=== PATIENT | female | born 1970 | race Caucasian/White ===

== ENCOUNTER → 2020-04-17 | Outpatient (CLI) | payer OTHER ==
--- NOTE | 2020-04-17 14:01 | MM ---
Reason for exam: screening (asymptomatic). Baseline mammogram. Physical Findings: Nurse did not find any significant physical abnormalities on exam. MG Screening Mammo w CAD Bilateral CC and MLO view(s) were taken. The breast tissue is extremely dense which could obscure a lesion on mammography. There is chronic nodularity in the left breast. No significant new findings when compared with previous films. These results were verbally communicated with the patient and result sheet given to the patient on 04/17/20. ASSESSMENT: Benign, BI-RAD 2 RECOMMENDATION: Routine screening mammogram of both breasts in 1 year.
== END | disposition home or self-care (01) ==
LOC: RADMAMWWP 12:49
PROVIDERS: ATTEND Internal Medicine
DX: Z12.31 Encounter for screening mammogram for malignant neoplasm of breast (principal)
CPT/HCPCS: 77067

== ENCOUNTER → 2020-05-16 | Outpatient (CLI) | payer OTHER ==
--- NOTE | 2020-05-16 16:41 | US ---
EXAMINATION TYPE: US liver DATE OF EXAM: 05/16/2020 COMPARISON: NONE CLINICAL HISTORY: 49-year-old female R94.5 Abnormal Liver Function Test. TECHNIQUE: Multiple sonographic images of the right upper quadrant are obtained. FINDINGS: EXAM MEASUREMENTS: Liver Length: 21.3 cm Gallbladder Wall: 0.2 cm CBD: 0.2 cm Right Kidney: 11.6 x 4.2 x 4.7 cm Pancreas: Only portions of the pancreatic neck and body are visualized. The head and tail are obscur ed by shadowing from bowel gas. Liver: Enlarged and slightly hyperechoic. No focal lesion is seen. Gallbladder: wnl Evidence for sonographic Chavez's sign: no CBD: visualized portions wnl, limited by overlying bowel gas Right Kidney: No hydronephrosis. IMPRESSION: 1. Hepatomegaly (21.3 cm). There may be mild fatty infiltration. 2. No gallstones or biliary ductal dilatation.
== END ==
LOC: RADUSWWP 15:19
PROVIDERS: ATTEND Internal Medicine
DX: R16.0 Hepatomegaly, not elsewhere classified (principal)
CPT/HCPCS: 76705

== ENCOUNTER → 2022-02-14 | Outpatient (CLI) | payer OTHER ==
--- NOTE | 2022-02-17 08:49 | MM ---
Reason for Exam: Screening (asymptomatic). Last mammogram was performed 1 year(s) and 10 month(s) ago. Patient History: Menarche at age 12. First Full-Term at age 18. Hysterectomy at age 43. Risk Values: Mindi 5 year model risk: 0.7%. NCI Lifetime model risk: 6.4%. Prior Study Comparison: 04/17/2020 Bilateral Screening Mammogram, [facility]. Tissue Density: The breast tissue is heterogeneously dense. This may lower the sensitivity of mammography. Findings: Analyzed By CAD. There is no suspicious group of microcalcifications or new suspicious mass in either breast. Overall Assessment: Negative, BI-RAD 1 Management: Screening Mammogram of both breasts in 1 year. A clinical breast exam by your physician is recommended on an annual basis and results should be correlated with mammographic findings. [facility] will attempt to contact patient to return for supplemental views and ultrasound if indicated. Electronically signed and approved by: Barak Blunt DO
== END | disposition home or self-care (01) ==
LOC: RADMAMWWP 16:29
PROVIDERS: ATTEND Internal Medicine
DX: Z12.31 Encounter for screening mammogram for malignant neoplasm of breast (principal)
CPT/HCPCS: 77067

== ENCOUNTER → 2023-05-22 | Outpatient (CLI) | payer OTHER ==
--- NOTE | 2023-05-26 14:15 | MM ---
Reason for Exam: Screening (asymptomatic). Last mammogram was performed 1 year(s) and 3 month(s) ago. Patient History: Menarche at age 12. First Full-Term at age 18. Hysterectomy at age 43. Risk Values: Mindi 5 year model risk: 0.8%. NCI Lifetime model risk: 6.3%. Prior Study Comparison: 04/17/2020 Bilateral Screening Mammogram, [facility]. 02/14/2022 Bilateral MG screening mammo w CAD, [facility]. Tissue Density: The breasts are extremely dense, which lowers the sensitivity of mammography. Findings: Analyzed By CAD. There is no suspicious group of microcalcifications or new suspicious mass. Benign-appearing calcifications right breast. Overall Assessment: Benign, BI-RAD 2 Management: Screening Mammogram of both breasts in [address] [facility] will attempt to contact patient to return for supplemental views and ultrasound if indicated. Patient should continue monthly self-breast exams. A clinical breast exam by your physician is recommended on an annual basis. This exam should not preclude additional follow-up of suspicious palpable abnormalities. Note on Mindi scores and lifetime risk: 1. A Mindi score greater than 3% is considered moderate risk. If this is the case, consider specialist referral to assess eligibility for a risk reducing agent. 2. If overall lifetime risk for the development of breast cancer is 20% or higher, the patient may qualify for future screening with alternating mammogram and breast MRI. Electronically signed and approved by: Barak Blunt DO
== END | disposition home or self-care (01) ==
LOC: RADMAMWWP 14:40
PROVIDERS: ATTEND Internal Medicine
DX: Z12.31 Encounter for screening mammogram for malignant neoplasm of breast (principal)
CPT/HCPCS: 77067

== ENCOUNTER → 2023-11-13 | Outpatient (CLI) | payer MEDICARE, OTHER ==
--- NOTE | 2023-11-13 08:17 | MM ---
Reason for Exam: Clinical finding. Last screening mammogram was performed 5 month(s) ago. Indicated Problems: Lump or thickening of the right side for 6 Month(s). Patient History: Menarche at age 12. First Full-Term at age 18. Hysterectomy at age 43. Risk Values: Mindi 5 year model risk: 0.8%. NCI Lifetime model risk: 6.2%. Prior Study Comparison: 04/17/2020 Bilateral Screening Mammogram, [facility]. 02/14/2022 Bilateral MG screening mammo w CAD, [facility]. 05/22/2023 Bilateral MG screening mammo w CAD, [facility]. Tissue Density: Right: The breasts are heterogeneously dense, which may obscure small masses. Findings: Analyzed By CAD. The palpable marker placed along the 1:00 position right breast. Underlying global asymmetry which appears to have been present on prior exams. Further ultrasound evaluation is recommended. Overall Assessment: Incomplete: need additional imaging evaluation, BI-RAD 0 Management: Diagnostic Breast Ultrasound of the right breast. Electronically signed and approved by: Curt Zepeda M.D. Radiologist
--- NOTE | 2023-11-13 14:13 | USB ---
Reason for Exam: Clinical finding. Patient History: Menarche at age 12. First Full-Term at age 18. Hysterectomy at age 43. Risk Values: Mindi 5 year model risk: 0.8%. NCI Lifetime model risk: 6.2%. Technique: Method: Targeted. Doppler: Color. Patient Position: Supine. Prior Study Comparison: 04/17/2020 Bilateral Screening Mammogram, [facility]. 02/14/2022 Bilateral MG screening mammo w CAD, [facility]. 05/22/2023 Bilateral MG screening mammo w CAD, [facility]. Findings: The upper section of the breast of the right breast, the area of palpable concern of the right breast, the axilla of the right breast and the retroareolar of the right breast were scanned. Targeted ultrasound upper inner quadrant right breast 11:00 to 3:00 including scanning of the subareolar region and axilla. Dense shadowing tissue is present throughout including the palpable 1:00 area. More focal shadowing area at the 11:00 estimated to measure 9 x 8 x 5 mm which has a suspicious appearance for which tissue sampling is recommended. No axillary lymphadenopathy. Overall Assessment: Suspicious, BI-RAD 4 Management: Ultrasound-Guided Core Biopsy of the right breast. Possible dense shadowing tissue at the 11:00 position but with suspicious appearance. Biopsy recommended. Also, given patient's report of enlarging palpable area at the 1:00 position, recommend further clinical assessment by a breast surgeon. Results were given to the patient verbally at the time of exam. Electronically signed and approved by: Curt Zepeda M.D. Radiologist
== END | disposition home or self-care (01) ==
LOC: RADMAMWWP 07:26
PROVIDERS: ATTEND Internal Medicine
DX: N63.10 Unspecified lump in the right breast, unspecified quadrant (principal); R92.333 Mammographic heterogeneous density, bilateral breasts
CPT/HCPCS: 77065; 76642; G0279; 77061

== ENCOUNTER → 2023-12-03 | Outpatient (CLI) | payer MEDICARE, OTHER ==
[2023-12-03 12:35] VITALS: BP 95/78; PULSE 70; RESP 15; TEMP 98.3
--- NOTE | 2023-12-03 13:00 | P.GSCN ---
History of Present Illness Consult date: 12/03/23 Reason for Consult: abnormal right breast mammogram and ultrasound Requesting physician: Nader Burch History of present illness: Isabel is a 53 year old female seen in consultation for Dr. Burch regarding an abnormal right breast mammogram and ultrasound. She had a bilateral mammogram on 05-22-23 which was BIRAD 2. She than had a palpable change in her right breast leading to a mammogram and ultrasound on 11-13-23. The ultrasund showed dense tissue at 1:00 as well as more focal shadowing at 11:00. Biopsy was recommended. She has been able to feel the area of fullness in her right breast for about 6 months, this has increased in size. It is uncomfortable at times. She is not complaining of any nipple discharge or skin changes. She does not note nay other lumps or masses in her breast. She has never had any surgery on her breast. She is not complaining of any trauma or infection in the breast. 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 cyst removed form ovaries tonsil Medical History: status post CVA/ left sided weakness pain in back and hips HTN anxiety muscle spasm Social History: nicotine: 5 cigarettes/day alcohol: occasional/ monthly used to drink daily stopped that in 2020 drugs: eats ediables Review of Systems - Constitutional Reports sweats - EENT EENT Comment(s): 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 Eyes: denies blurred vision Ears: deny: decreased hearing, tinnitus Ears, nose, mouth and throat: Reports dysphagia - Breasts bilateral: as per HPI - Cardiovascular Denies chest pain, Denies shortness of breath - Respiratory Denies cough, Denies 7 - Gastrointestinal Reports as per HPI - Genitourinary Genitourinary: Denies dysuria, Denies hematuria Menstruation: Reports post hysterectomy - Musculoskeletal Reports as per HPI - Integumentary Denies rash, Denies unusual bruising - Neurological Reports headaches, Denies syncope - Psychiatric Reports anxiety - Endocrine Reports as per HPI, Reports fatigue, Reports weight change - Hematologic/Lymphatic Reports as per HPI - Allergic/Immunologic Reports as per HPI, Reports seasonal allergies Past Medical History Past Medical History: Hyperlipidemia, Hypertension Additional Past Medical History / Comment(s): . HYPOGLYCEMIA. NO HX OF TX FOR ELEV CHOLESTEROL, no medications. Chronic back pain. History of CVA Jan 2021 Left side R/t brain aneurysm surgery History of Any Multi-Drug Resistant Organisms: None Reported Past Surgical History: Hysterectomy, Tonsillectomy Additional Past Surgical History / Comment(s): LAPAROSCOPY, EXC OVARIAN CYSTS. Brain aneurysm 2020 Past Anesthesia/Blood Transfusion Reactions: No Reported Reaction Past Psychological History: ADD/ADHD, Anxiety, Depression Additional Psychological History / Comment(s): OFF RX FOR FEW MONTHS, IMPROVED Smoking Status: Current every day smoker Past Alcohol Use History: Occasional Additional Past Alcohol Use History / Comment(s): 5 cigarettes daily Past Drug Use History: Marijuana Additional Drug Use History / Comment(s): edibles. - Past Family History Father Family Medical History: Cancer Mother Family Medical History: Deep Vein Thrombosis (DVT) Medications and Allergies Home Medications Medication Instructions Recorded Confirmed Type Cyclobenzaprine [Flexeril] 10 mg PO DAILY 11/17/23 12/03/23 History Dextroamphetamine/Amphetamine 20 mg PO DAILY 11/17/23 12/03/23 History [Adderall] HYDROcodone/APAP 10-325MG [[employer] 1 tab PO QID 11/17/23 12/03/23 History 10-325] Meloxicam [Mobic] 15 mg PO DAILY 11/17/23 12/03/23 History lisinopriL [Zestril] 1 each PO DAILY 11/17/23 12/03/23 History traZODone HCL [Desyrel] 100 mg PO HS 11/17/23 12/03/23 History Allergies Allergy/AdvReac Type Severity Reaction Status Date / Time Penicillins Allergy Intermediate Rash/Hives Verified 12/03/23 12:32 Surgical - Exam Vital Signs Temp Pulse Resp BP Pulse Ox 98.3 F 70 15 95/78 99 12/03/23 12:32 12/03/23 12:32 12/03/23 12:32 12/03/23 12:32 12/03/23 12:32 - General moderate distress - Eyes normal ocular movement - Neck trachea midline - Respiratory normal respiratory effort, clear to auscultation - Cardiovascular Rhythm: regular Heart Sounds: normal: S1, S2 - Integumentary normal turgor - Psychiatric oriented to time, oriented to person, oriented to place, speech is normal, memory intact Breast Exam: BRA: 36C inspection: Bilateral grade 2 ptosis Palpation: Right breast: Multi positional exam reveals some dense breast tissue which is greatest in the upper outer quadrant as well as some density in the approximately 1 o'clock position; palpable in the upper inner aspect of the breast examination Right axilla: No adenopathy of concern Left breast: Multi positional exam fibrocystic changes no dominant masses or nodules of concern Left axilla: No adenopathy of concern Results Ultra Sound abnormality right breast personally reviewed and interpreted Assessment and Plan Assessment: Impression: Fullness right breast upper outer quadrant and approximately 1 o'clock position/these areas correlate with changes on the ultrasound Fibrocystic breast changes Status post CVA related to a brain aneurysm with some residual left-sided weakness Back pain Plan: Ultrasound-guided biopsy of 2 sites in the right breast with follow-up after this; 11:00 and 1:00 positions CC: Dr. Burch
== END ==
LOC: WWCWWP 12:20
PROVIDERS: ATTEND Surgery
DX: R92.8 Other abnormal and inconclusive findings on diagnostic imaging of breast (principal); F17.210 Nicotine dependence, cigarettes, uncomplicated; N60.11 Diffuse cystic mastopathy of right breast; M54.9 Dorsalgia, unspecified; Z86.73 Personal history of transient ischemic attack (TIA), and cerebral infarction without residual deficits; Z88.0 Allergy status to penicillin

== ENCOUNTER → 2023-12-04 | Day surgery (SDC) | payer MEDICARE, OTHER ==
--- NOTE | 2023-12-04 12:47 | USB ---
Risk Values: Mindi 5 year model risk: 0.8%. NCI Lifetime model risk: 6.2%. Electronically signed and approved by: Jovanny Medina D.O. Radiologis
== END ==
LOC: RADUSWWP 10:26
PROVIDERS: ATTEND Surgery
DX: R92.8 Other abnormal and inconclusive findings on diagnostic imaging of breast (principal)